=== PATIENT | male | born 1945 | race Caucasian/White ===

== ENCOUNTER 2022-03-12 13:16 | Inpatient (IN) | payer OTHER, MEDICAID ==
[~2022-03-12] VITALS: Ht 166.4 cm; Wt 68.0 kg
[2022-03-12 13:35] VITALS: BP_SYST 110
--- NOTE | 2022-03-12 14:19 | NUR ---
PT BIB AWAKE AND ALERT AOX4, NO SOB OR DISTRESS. PT C./O NEW ONSET OF INCONTINENCE AND GENERALIZXED WEAKNESS FOR X3 DAYS.
--- NOTE | 2022-03-12 14:20 | NUR ---
MD DR ROBERTS AT BEDSIDE
[2022-03-12] MEDS ORDERED: NACL 0.9% 1,000 ML IV ONE (14:45)
[2022-03-12 15:13] LABS: BASOPHILS % (AUTO) 0.2 % (0.0-2.0); EOSINOPHILS # (AUTO) 0.2 K/uL (0.0-0.4); EOSINOPHILS % (AUTO) 1.9 % (0.0-4.0); HEMATOCRIT 41.3 % (36-54); HEMOGLOBIN 13.7 g/dL (14.0-18.0); LYMPHOCYTES # (AUTO) 1.5 K/uL (1.0-5.5); LYMPHOCYTES % (AUTO) 17.6 % (20.5-51.5); MEAN CORPUSCULAR HEMOGLOBIN 31 pg (27-31); MEAN CORPUSCULAR HGB CONC 33 % (32-36); MEAN CORPUSCULAR VOLUME 93 fL (79.0-98.0); MONOCYTES # (AUTO) 0.4 K/uL (0.0-1.0); MONOCYTES % (AUTO) 4.5 % (1.7-9.3); NEUTROPHILS # (AUTO) 6.6 K/uL (1.8-7.7); NEUTROPHILS % (AUTO) 75.8 % (40.0-70.0); PLATELET COUNT (AUTO) 219 K/uL (130-430); RED BLOOD CELL COUNT(AUTO) 4.43 MIL/uL (4.2-6.2); RED CELL DISTRIBUTION WIDTH 13.6 % (9.0-15.0); WHITE BLOOD COUNT (AUTO) 8.7 K/uL (4.8-10.8)
[2022-03-12 15:32] LABS: ALANINE AMINOTRANSFERASE 13 U/L (12-78); ALBUMIN 3.3 g/dL (3.4-4.8); ANION GAP 8 (5-15); ASPARTATE AMINOTRANSFERASE 10 U/L (10-37); CALCIUM 8.9 mg/dL (8.4-11.0); CHLORIDE 102 mmol/L (98-107); CREATININE 0.93 mg/dL (0.55-1.30); TOTAL BILIRUBIN 0.7 mg/dL (0.0-1.0); UREA NITROGEN, BLOOD 17 mg/dL (8-21)
[2022-03-12 15:40] LABS: GLUCOSE 446 mg/dL (70-99)
[2022-03-12 16:23] LABS: BILIRUBIN,URINE NEGATIVE (NEGATIVE); BLOOD, URINE NEGATIVE (NEGATIVE); CLARITY/URINE CLEAR (CLEAR); COLOR,URINE YELLOW (YELLOW); GLUCOSE,URINE 3+ (NEGATIVE); KETONES,URINE TRACE (NEGATIVE); LEUKOCYTE ESTERASE ,URINE NEGATIVE (NEGATIVE); NITRITE, URINE NEGATIVE (NEGATIVE); PROTEIN URINE NEGATIVE (NEGATIVE); UROBILINOGEN,URINE 0.2 (0.2-1.0)
[2022-03-12 16:35] LABS: BACTERIA,URINE None Seen /HPF (None Seen); MUCUS,URINE None Seen /LPF (None Seen); RBC,URINE NONE SEEN /HPF (0-3); WBC,URINE 0-3 /HPF (0-3)
[2022-03-12] MEDS ORDERED: LISI-209 PO (18:37)
[2022-03-12] MEDS ORDERED: LEVO125T8 PO (18:37)
[2022-03-12] MEDS ORDERED: CARB1TAB33 PO (18:37)
[2022-03-12] MEDS ORDERED: METF-379 PO (18:37)
[2022-03-12] MEDS ORDERED: LIP40 PO (18:37)
--- NOTE | 2022-03-12 19:08 | NUR ---
REPORT GIVEN TO STEPHANIE. PT STABLE VSS
--- NOTE | 2022-03-12 19:15 | NUR ---
REC REPORT FROM [facility]EM [facility]. REC PT SITTING IN BED RESTING AWAKE. PT DENIES ANY DISCOMFORT AT THIS POINT. PT STATING HE WANTS TO EAT, MADE AWARE IN CASE OF DIET PREFERENCE. VSS. SAFETY PRECAUTIONS IN PLACE AND CONNECTED TO MONITOR.
--- NOTE | 2022-03-12 19:37 | NUR ---
Admit bed requested Patient will be admitted to care of Dr. HERNANDEZ. Admitted to TELEMETRY unit. Diagnosis UNSTABLE GAIT, INCONTINENCE Inpatient (Yes or No) YES Observation (Yes or No) NO Orientation concerns or request close to nursing station (Yes or No) NO Covid Status NEGATIVE On vent or bipap NO Isolation requirements NO Needs a sitter NO From Home (Yes or if No enter name of facility) HOME Requires Dialysis (Yes or No) NO Med Rec Completed (Yes of No) YES
[2022-03-12 22:11] VITALS: BP_SYST 135
--- NOTE | 2022-03-12 22:11 | NUR ---
Patient will be admitted to care of DR. HERNANDEZ. Admitted to TELEMETRY unit. Will go to room 112B. Belongings list completed. Complete and up to date summary report printed. SBAR report given TO CRISTO PRIEST at bedside with opportunity for questions.
--- NOTE | 2022-03-12 23:22 | NUR ---
Admission Note Received patient from ER with diagnosis of unstable gait and incontinence. Initial Plan of Care discussed-patient verbalized understanding. Oriented to room, call light, pain management and safety.
--- NOTE | 2022-03-12 23:30 | NUR ---
PAGED DR HERNANDEZ 2ND TIME PAGING MD FOR ORDERS.
[2022-03-13] VITALS: BP_SYST 137
--- NOTE | 2022-03-13 00:18 | NUR ---
CALLED DR HERNANDEZ CALLED [phone], LEFT A VOICEMAIL.
[2022-03-13] MEDS ORDERED: INSULIN LISPRO SLIDING SCALE 100 UNITS/ML, 3 ML VIAL (humaLOG) SUBCUT PRN (00:30)
[2022-03-13] MEDS ORDERED: INSULIN Lispro 100 UNITS/ML, 3 ML VIAL (humaLOG) SUBCUT ONE (02:00)
--- NOTE | 2022-03-13 03:00 | NUR ---
ROUNDS PATIENT IN BED, RESTING. NO SIGNS OF DISCOMFORT. ALL NEEDS MET. WILL MONITOR.
--- NOTE | 2022-03-13 05:11 | NUR ---
Consultation Paged Reason for Consultation: Unsteady Gait Was consult called: Y Person who was notified: Dr. Roth text message Consulting Physician: Dhruv Toussaint Ordering Physician: Inga Henson
--- NOTE | 2022-03-13 06:38 | NUR ---
CLOSING NOTE PATIENT IN BED, RESTING. NO S/S OF ACUTE DISTRESS. BREATHING EVEN AND UNLABORED. SKIN WARM AND DRY TO TOUCH, NO S/S OF HYPOGLYCEMIA. IV SITE PATENT, NO SIGNS OF INFILTRATION OR INFECTION NOTED. ALL NEEDS MET THROUGHOUT SHIFT. FALL, SAFETY PRECAUTIONS MAINTAINED THROUGHOUT SHIFT. WILL CONTINUE TO MONITOR UNTIL PATIENT CARE IS ENDORSED TO ONCOMING DAYSHIFT NURSE.
--- NOTE | 2022-03-13 06:40 | NUR ---
CLOSING NOTE PATIENT WAS ABLE TO VOID WITHOUT RESIDUAL DURING THE NIGHT. PATIENT SLEPT WELL DURING THE NIGHT, HIS BLOOD SUGAR ONLY NEEDED 2 UNITS OF INSULIN COVERAGE PER SSI ORDERED BY . CALL LIGHT IS WITHIN REACH. BED IS LOCKED, ALARMED, AND AT LOWEST LEVEL. FALL, AND SAFETY PRECAUTIONS HAVE BEEN TAKEN THROUGHOUT THE SHIFT. Addendum: 03/14/22 at 0735 by [facility], CEM PRIEST NOTE INTENDED FOR DIFFERENT TIME
[2022-03-13 06:54] LABS: BASOPHILS % (AUTO) 0.4 % (0.0-2.0); EOSINOPHILS # (AUTO) 0.3 K/uL (0.0-0.4); EOSINOPHILS % (AUTO) 3.8 % (0.0-4.0); HEMATOCRIT 39.1 % (36-54); HEMOGLOBIN 13.3 g/dL (14.0-18.0); LYMPHOCYTES # (AUTO) 2.3 K/uL (1.0-5.5); LYMPHOCYTES % (AUTO) 28.8 % (20.5-51.5); MEAN CORPUSCULAR HEMOGLOBIN 31 pg (27-31); MEAN CORPUSCULAR HGB CONC 34 % (32-36); MEAN CORPUSCULAR VOLUME 91 fL (79.0-98.0); MONOCYTES # (AUTO) 0.6 K/uL (0.0-1.0); MONOCYTES % (AUTO) 7.2 % (1.7-9.3); NEUTROPHILS # (AUTO) 4.7 K/uL (1.8-7.7); NEUTROPHILS % (AUTO) 59.8 % (40.0-70.0); PLATELET COUNT (AUTO) 219 K/uL (130-430); RED CELL DISTRIBUTION WIDTH 13.2 % (9.0-15.0); WHITE BLOOD COUNT (AUTO) 7.9 K/uL (4.8-10.8)
--- NOTE | 2022-03-13 07:00 | NUR ---
CALLED DR. MCMAHON CALLED MD AT [phone]. NO ANSWER, LEFT A VOICEMAIL. WILL ENDORSE TO AM SHIFT.
[2022-03-13 07:20] LABS: ALANINE AMINOTRANSFERASE 24 U/L (12-78); ALBUMIN 3.1 g/dL (3.4-4.8); ANION GAP 11 (5-15); ASPARTATE AMINOTRANSFERASE 10 U/L (10-37); CALCIUM 8.7 mg/dL (8.4-11.0); CHLORIDE 105 mmol/L (98-107); CREATININE 0.66 mg/dL (0.55-1.30); GLUCOSE 176 mg/dL (70-99); TOTAL BILIRUBIN 0.7 mg/dL (0.0-1.0); UREA NITROGEN, BLOOD 17 mg/dL (8-21)
[2022-03-13] MEDS ORDERED: GLUCOSE (DEXTROSE) ORAL GEL -Adults PO PRN (08:45)
[2022-03-13] MEDS ORDERED: D5W 1,000 ML IV PRN (08:45)
[2022-03-13] MEDS ORDERED: DEXTROSE 50%-WATER 50 ML DISP.SYRIN IVP PRN (08:45)
[2022-03-13 08:55] VITALS: BP_SYST 121
[2022-03-13] MEDS ORDERED: lisinopriL 5 MG TABLET PO ONE (10:15)
[2022-03-13] MEDS ORDERED: metFORMIN HCL 500 MG TABLET PO ONE (10:15)
[2022-03-13] MEDS ORDERED: CARBIDOPA/LEVODOPA 25/100 MG TABLET PO ONE (10:15)
[2022-03-13] MEDS ORDERED: POTASSIUM CHLORIDE 20 MEQ TAB.PRT.SR PO ONE (10:45)
[2022-03-13] MEDS: INSULIN REGULAR, HUMAN 100 UNITS/ML, 3 ML VIAL (humuLIN R) SUBCUT PRN ×3 (11:40→21:37)
[2022-03-13 12:00] VITALS: BP_SYST 128
[2022-03-13 16:00] VITALS: BP_SYST 101
[2022-03-13] MEDS: CARBIDOPA/LEVODOPA 25/100 MG TABLET PO SCH ×2 (17:19→21:28)
[2022-03-13 19:35] VITALS: BP_SYST 109
[2022-03-13] MEDS: ATORVASTATIN 20 MG TABLET PO SCH (21:27)
[2022-03-13] MEDS: metFORMIN HCL 500 MG TABLET PO SCH (21:28)
--- NOTE | 2022-03-13 22:10 | NUR ---
UPDATED FAMILY PATIENT'S NEPHEW MILLY MARIANO UPDATED ON PATIENT'S CURRENT CONDITION. [phone]
[2022-03-14 00:37] VITALS: BP_SYST 110
[2022-03-14] MEDS: INSULIN REGULAR, HUMAN 100 UNITS/ML, 3 ML VIAL (humuLIN R) SUBCUT PRN ×4 (06:39→21:03)
--- NOTE | 2022-03-14 06:40 | NUR ---
CLOSING NOTE PATIENT WAS ABLE TO VOID WITHOUT RESIDUAL DURING THE NIGHT. PATIENT SLEPT WELL DURING THE NIGHT, HIS BLOOD SUGAR ONLY NEEDED 2 UNITS OF INSULIN COVERAGE PER SSI ORDERED BY MD. CALL LIGHT IS WITHIN REACH. BED IS LOCKED, ALARMED, AND AT LOWEST LEVEL. FALL, AND SAFETY PRECAUTIONS HAVE BEEN TAKEN THROUGHOUT THE SHIFT.
[2022-03-14 08:58] VITALS: BP_SYST 124
[2022-03-14] MEDS: metFORMIN HCL 500 MG TABLET PO SCH ×2 (09:40→20:52)
[2022-03-14] MEDS: lisinopriL 5 MG TABLET PO SCH (09:41)
[2022-03-14] MEDS: LEVOTHYROXINE SODIUM 0.125 MG TABLET PO SCH (09:42)
[2022-03-14] MEDS: CARBIDOPA/LEVODOPA 25/100 MG TABLET PO SCH ×3 (09:42→20:52)
[2022-03-14 11:34] VITALS: BP_SYST 118
[2022-03-14 18:05] VITALS: BP_SYST 109
[2022-03-14 19:30] VITALS: BP_SYST 108
[2022-03-14] MEDS: ATORVASTATIN 20 MG TABLET PO SCH (20:53)
[2022-03-15] VITALS: BP_SYST 111
[2022-03-15] MEDS: INSULIN REGULAR, HUMAN 100 UNITS/ML, 3 ML VIAL (humuLIN R) SUBCUT PRN ×3 (06:47→18:03)
--- NOTE | 2022-03-15 06:50 | NUR ---
CLOSING NOTE NO CHANGES. PATIENT WAS ABLE TO VOID WITHOUT RESIDUAL DURING THE NIGHT. PATIENT SLEPT WELL DURING THE NIGHT, HIS BLOOD SUGAR ONLY NEEDED 4 UNITS OF INSULIN COVERAGE PER SSI ORDERED BY MD. CALL LIGHT IS WITHIN REACH. BED IS LOCKED, ALARMED, AND AT LOWEST LEVEL. FALL, AND SAFETY PRECAUTIONS HAVE BEEN TAKEN THROUGHOUT THE SHIFT.
[2022-03-15 07:01] LABS: ANION GAP 10 (5-15); CALCIUM 8.8 mg/dL (8.4-11.0); CHLORIDE 103 mmol/L (98-107); CREATININE 0.65 mg/dL (0.55-1.30); GLUCOSE 190 mg/dL (70-99); UREA NITROGEN, BLOOD 26 mg/dL (8-21)
[2022-03-15 07:31] LABS: BASOPHILS % (AUTO) 0.2 % (0.0-2.0); EOSINOPHILS # (AUTO) 0.3 K/uL (0.0-0.4); EOSINOPHILS % (AUTO) 3.3 % (0.0-4.0); HEMATOCRIT 40.8 % (36-54); HEMOGLOBIN 13.6 g/dL (14.0-18.0); LYMPHOCYTES # (AUTO) 2.5 K/uL (1.0-5.5); LYMPHOCYTES % (AUTO) 28.8 % (20.5-51.5); MEAN CORPUSCULAR HEMOGLOBIN 31 pg (27-31); MEAN CORPUSCULAR HGB CONC 33 % (32-36); MEAN CORPUSCULAR VOLUME 92 fL (79.0-98.0); MONOCYTES # (AUTO) 0.5 K/uL (0.0-1.0); MONOCYTES % (AUTO) 6.2 % (1.7-9.3); NEUTROPHILS # (AUTO) 5.2 K/uL (1.8-7.7); NEUTROPHILS % (AUTO) 61.5 % (40.0-70.0); PLATELET COUNT (AUTO) 220 K/uL (130-430); RED BLOOD CELL COUNT(AUTO) 4.44 MIL/uL (4.2-6.2); RED CELL DISTRIBUTION WIDTH 13.2 % (9.0-15.0); WHITE BLOOD COUNT (AUTO) 8.5 K/uL (4.8-10.8)
[2022-03-15] MEDS: LEVOTHYROXINE SODIUM 0.125 MG TABLET PO SCH (09:50)
[2022-03-15] MEDS: metFORMIN HCL 500 MG TABLET PO SCH (09:50)
[2022-03-15] MEDS: lisinopriL 5 MG TABLET PO SCH (09:51)
[2022-03-15] MEDS: CARBIDOPA/LEVODOPA 25/100 MG TABLET PO SCH ×2 (09:51→15:00)
--- NOTE | 2022-03-15 12:00 | NUR ---
post void residual 70ml
[2022-03-15 15:39] VITALS: BP_SYST 110
[2022-03-15 16:00] VITALS: BP_SYST 110
--- NOTE | 2022-03-15 17:00 | NUR ---
spoke to on telephone to notify her all dc paperwork complete, reports she will return to pick patient up in one hour
--- NOTE | 2022-03-15 19:45 | NUR ---
RECEIVED PT SITTING ON BED READY TO GO HOME. IV REMOVED CATH TIP INTACT. ALL BELONGINGS WITH PT'S . PT IN STABLE CONDITION. WHEELED PT OUT TO CARE. TRANSFERRED WITH MIN ASSIST AND PT USING CANE.
== END 2022-03-15 19:40 | disposition home or self-care (01) | DRG 57 ==
LOC: SED 13:16 → STU 19:26
PROVIDERS: ADMIT Internal Medicine; ATTEND Internal Medicine
PROC: 4A00X4Z Measurement of Central Nervous Electrical Activity, External Approach (ICD-10-PCS; principal; 2021-03-14)
DX: G91.2 (Idiopathic) normal pressure hydrocephalus (principal); E03.9 Hypothyroidism, unspecified; E78.00 Pure hypercholesterolemia, unspecified; G20 Parkinson's disease; I10 Essential (primary) hypertension; R39.81 Functional urinary incontinence; E11.40 Type 2 diabetes mellitus with diabetic neuropathy, unspecified; F02.80 Dementia in other diseases classified elsewhere, unspecified severity, without behavioral disturbance, psychotic disturbance, mood disturbance, and anxiety; Z20.822 Contact with and (suspected) exposure to COVID-19; Z79.899 Other long term (current) drug therapy
CPT/HCPCS: 36415; 70450-TC; 70551; 71045; 76376; 76770; 80048; 80053; 81000; 82962; 83605; 85025; 87040; 87086; 93005; 95816; 96360; 97110-GP; 97116-GP; 97530-GP; 99285; G0378

== ENCOUNTER 2023-06-10 11:18 | Emergency (ER) | payer OTHER, MEDICAID ==
[~2023-06-10] VITALS: Ht 165.1 cm; Wt 60.8 kg
[~2023-06-10 11:18] MED LIST: CARB1TAB33 PO; LEVO125T8 PO; LIP40 PO; LISI-209 PO; METF-379 PO
[2023-06-10 11:24] VITALS: BP_SYST 111; PULSE 83; RESP 18; TEMP 98.3; O2SAT 99
[2023-06-10 12:16] LABS: BASOPHILS % (AUTO) 0.2 % (0.0-2.0); EOSINOPHILS # (AUTO) 0.3 K/uL (0.0-0.4); EOSINOPHILS % (AUTO) 3.1 % (0.0-4.0); HEMATOCRIT 38.6 % (36-54); HEMOGLOBIN 13.1 g/dL (14.0-18.0); LYMPHOCYTES # (AUTO) 1.8 K/uL (1.0-5.5); MEAN CORPUSCULAR HEMOGLOBIN 31 pg (27-31); MEAN CORPUSCULAR HGB CONC 34 % (32-36); MEAN CORPUSCULAR VOLUME 92 fL (79.0-98.0); MONOCYTES # (AUTO) 0.5 K/uL (0.0-1.0); MONOCYTES % (AUTO) 5.9 % (1.7-9.3); NEUTROPHILS # (AUTO) 6.1 K/uL (1.8-7.7); NEUTROPHILS % (AUTO) 69.8 % (40.0-70.0); PLATELET COUNT (AUTO) 203 K/uL (130-430); RED BLOOD CELL COUNT(AUTO) 4.19 MIL/uL (4.2-6.2); RED CELL DISTRIBUTION WIDTH 13.2 % (9.0-15.0); WHITE BLOOD COUNT (AUTO) 8.8 K/uL (4.8-10.8)
[2023-06-10 12:34] LABS: ANION GAP 10 (5-15); CALCIUM 8.4 mg/dL (8.4-11.0); CARBON DIOXIDE 23 mmol/L (23-29); CHLORIDE 100 mmol/L (98-107); CREATININE 1.01 mg/dL (0.55-1.30); GLUCOSE 328 mg/dL (74-106); POTASSIUM 3.7 mmol/L (3.5-5.1); SODIUM SERUM 133 mmol/L (136-145); UREA NITROGEN, BLOOD 20 mg/dL (8-21)
[2023-06-10] MEDS: NACL 0.9% 1,000 ML IV ONE (13:09)
[2023-06-10] MEDS ORDERED: CIPR250T4 PO (14:06)
[2023-06-10] MEDS: INSULIN REGULAR, HUMAN 10 UNITS/0.1 ML, 3 ML VIAL SUBCUT ONE (14:18)
[2023-06-10] MEDS: INSULIN Lispro 100 UNITS/ML, 3 ML VIAL (humaLOG) SUBCUT ONE (14:29)
[2023-06-10 15:01] LABS: BILIRUBIN,URINE NEGATIVE (NEGATIVE); BLOOD, URINE NEGATIVE (NEGATIVE); CLARITY/URINE CLEAR (CLEAR); COLOR,URINE YELLOW (YELLOW); GLUCOSE,URINE 3+ (NEGATIVE); KETONES,URINE 3+ (NEGATIVE); LEUKOCYTE ESTERASE ,URINE NEGATIVE (NEGATIVE); NITRITE, URINE NEGATIVE (NEGATIVE); PH,URINE 5.5 (5.0-8.0); PROTEIN URINE NEGATIVE (NEGATIVE); UROBILINOGEN,URINE 0.2 (0.2-1.0)
[2023-06-10 15:17] LABS: BACTERIA,URINE MODERATE /HPF (None Seen); RBC,URINE NONE SEEN /HPF (0-3); WBC,URINE NONE SEEN /HPF (0-3)
[2023-06-10 15:20] VITALS: BP_SYST 109; PULSE 66; RESP 19; TEMP 98.1; O2SAT 99
== END 2023-06-10 15:20 | disposition home or self-care (01) ==
LOC: SED 11:18
DX: E11.65 Type 2 diabetes mellitus with hyperglycemia (principal); R19.7 Diarrhea, unspecified; R11.0 Nausea; I10 Essential (primary) hypertension; Z79.899 Other long term (current) drug therapy
CPT/HCPCS: 99283; 96360; 80048; 81001; 85025; 87086; 36415; 96372; 82948; 81000; 81015; J7030